=== PATIENT | female | born 1990 | race African-American/Black ===

== ENCOUNTER 2016-05-31 22:00 | Emergency (ER) | payer OTHER ==
[~2016-05-31] VITALS: Ht 175.3 cm; Wt 135.6 kg
[~2016-05-31 22:00] MED LIST: ONDA8ODT2 PO
[2016-05-31 22:21] VITALS: BP 148/101
--- NOTE | 2016-05-31 22:51 | NUR ---
TO ER OF4
--- NOTE | 2016-05-31 22:53 | NUR ---
Patient being evaluated by physician.
[2016-05-31] MEDS ORDERED: NACL 0.9% 1,000 ML IV SCH (22:58)
[2016-05-31] MEDS ORDERED: DICYCLOMINE 20 MG/2 ML VIAL IM ONE (23:00)
[2016-05-31] MEDS ORDERED: METOCLOPRAMIDE 10 MG/2 ML INJ VIAL IVP ONE (23:00)
--- NOTE | 2016-05-31 23:15 | NUR ---
MOVED TO ER BED 4
[2016-05-31 23:25] LABS: HEMATOCRIT 38.8 % (36-48); HEMOGLOBIN 12.8 g/dL (12.0-16.0); MEAN CORPUSCULAR HEMOGLOBIN 31 pg (27-31); MEAN CORPUSCULAR HGB CONC 33 g/dL (33-37); MEAN CORPUSCULAR VOLUME 95 fL (80-94); PLATELET COUNT (AUTO) 265 K/uL (140-450); RED BLOOD CELL COUNT(AUTO) 4.09 MIL/uL (4.20-5.40); RED CELL DISTRIBUTION WIDTH 12.2 % (11.6-13.7); WHITE BLOOD COUNT (AUTO) 6.1 K/uL (4.8-10.8)
[2016-05-31 23:32] LABS: BAND % (MANUAL) 0 % (0-8); LYMPHOCYTES % (MANUAL) 41 % (20-46); NEUTROPHILS % (MANUAL) 57 (43-65)
[2016-05-31 23:33] LABS: MONOCYTES % (MANUAL) 2 % (5-12)
[2016-05-31 23:42] LABS: APPEARANCE,URINE CLOUDY (CLEAR); BILIRUBIN,URINE 2+ (NEGATIVE); BLOOD, URINE 3+ (NEGATIVE); COLOR,URINE YELLOW (YELLOW); LEUKOCYTE ESTERASE ,URINE TRACE (NEGATIVE); NITRITE, URINE NEGATIVE (NEGATIVE); PH,URINE 6.5 (5.0-9.0); PROTEIN,URINE 1+ (NEGATIVE); UGLUCOSE NEGATIVE (NEGATIVE); UROBILINOGEN,URINE 0.2 EU/dL (0.2 - 1)
--- NOTE | 2016-05-31 23:43 | NUR ---
PATIENT PRESENTS TO ED WITH LLQ ABD PAIN SINCE TUESDAY . PT STATES SHE HAS ALSO BEEN VOMITING . DENIES DIARRHEA; SKIN IS PINK/WARM/DRY; AAOX4 WITH EVEN AND STEADY GAIT; LUNGS CLEAR BL; HR EVEN AND REGULAR; PT DENIES ANY FEVER, CP, SOB, OR COUGH AT THIS TIME; PATIENT STATES PAIN OF 10/10 AT THIS TIME; VSS; PATIENT POSITIONED FOR COMFORT; HOB ELEVATED; BEDRAILS UP X2; BED DOWN. ER MD MADE AWARE OF PT STATUS. SIGNIFICANT OTHER AT BEDSIDE AT THIS TIME
[2016-05-31 23:48] LABS: ALBUMIN 3.7 g/dL (3.4-5.0); ANION GAP 13.2 (8-16); CALCIUM 8.5 mg/dL (8.5-10.1); CARBON DIOXIDE 27.9 mmol/L (21-32); POTASSIUM 3.1 mmol/L (3.5-5.1); TOTAL BILIRUBIN 1.1 mg/dL (0.0-1.0); TOTAL PROTEIN, SERUM 8.5 g/dL (6.4-8.2)
[2016-06-01 00:01] LABS: BACTERIA,URINE 4+ /HPF (None Seen); ICTOTEST NEGATIVE (NEGATIVE); MUCUS,URINE 4+ /LPF (None Seen); RBC,URINE TOO NUMEROUS TO COUN /HPF (0-5)
[2016-06-01 00:27] VITALS: BP 153/99
--- NOTE | 2016-06-01 00:28 | NUR ---
Patient discharged with v/s stable. Written and verbal after care instructions given and explained. Patient alert, oriented and verbalized understanding of instructions. Ambulatory with steady gait. All questions addressed prior to discharge. ID band removed. Patient advised to follow up with PMD. Rx of BENTYL AND REGLAN given. Patient educated on indication of medication including possible reaction and side effects. Opportunity to ask questions provided and answered.
== END 2016-06-01 00:27 | disposition home or self-care (01) ==
LOC: MED 22:00
DX: R10.13 Epigastric pain (principal); R11.2 Nausea with vomiting, unspecified; R19.7 Diarrhea, unspecified; I10 Essential (primary) hypertension; F17.200 Nicotine dependence, unspecified, uncomplicated; Z71.6 Tobacco abuse counseling; Z98.890 Other specified postprocedural states
CPT/HCPCS: 36415; 80053; 81001; 81025; 83690; 84703; 85025; 87086; 96361; 96372; 96374; 99284; J0500; J2765; J7030

== ENCOUNTER 2017-11-04 09:44 | Emergency (ER) | payer MEDICAID, OTHER ==
[~2017-11-04] VITALS: Ht 175.3 cm; Wt 151.0 kg
[2017-11-04 09:48] VITALS: BP 149/100
--- NOTE | 2017-11-04 10:15 | NUR ---
27f bib self with c/o 8/10 right shouler pain x 3 days. Patient denies any recent injury or fall. Patient also reports of non radiating "tighting" midsternal cp x yesterday, but has been constant this morning at 0740 after "walking". Patient reports of SOB as well. Patient is aox4 to person, place, situation, and time. RR are even and unlabored. Clear speech with full setences. Skin is warm/dry/color appriopriate for age. Patient denies any recent heavy lifting or injury to chest area. Patinet denies any recent fevers. Patient changed into gown and to cardiac, bp, pulse, and pulse ox monitoring. NSR on cardiac monitoring. VSS. NAD. Awaiting er md nevarez. Patient positioned to comfort.All needs met at this time. Will continue to monitor.
--- NOTE | 2017-11-04 10:15 | NUR ---
notified er md del castillo of patient's complaints and status. no new orders. will continue to monitor.
--- NOTE | 2017-11-04 11:15 | NUR ---
er md del castillo by bedside examining patient
[2017-11-04] MEDS ORDERED: IPRATROPIUM 0.02% 0.5 MG/2.5 ML NEBU INH ONE (11:25)
[2017-11-04] MEDS ORDERED: methylPREDNISolone SS 125 MG/2 ML VIAL IVP ONE (11:25)
[2017-11-04] MEDS ORDERED: ALBUTEROL 0.083% 2.5 MG/3 ML NEBU INH ONE (11:25)
[2017-11-04] MEDS ORDERED: KETOROLAC 30 MG/ML VIAL IVP ONE (11:25)
[2017-11-04 11:36] LABS: BARBITURATE, URINE NEGATIVE ng/ml (NEG <=200); BENZODIAZEPINE, URINE NEGATIVE ng/mL (NEG <=200); CANNABINOID, URINE POSITIVE ng/mL (NEG <=50); COCAINE, URINE NEGATIVE ng/mL (NEG <=300); OPIATE, URINE NEGATIVE ng/mL (NEG <=2000); PHENCYCLIDINE SCREEN,URINE NEGATIVE ng/mL (NEG <=25)
[2017-11-04 11:52] LABS: APPEARANCE,URINE CLEAR (CLEAR); BILIRUBIN,URINE NEGATIVE (NEGATIVE); BLOOD, URINE 1+ (NEGATIVE); COLOR,URINE YELLOW (YELLOW); LEUKOCYTE ESTERASE ,URINE NEGATIVE (NEGATIVE); NITRITE, URINE NEGATIVE (NEGATIVE); PH,URINE 6.5 (5.0-9.0); UGLUCOSE NEGATIVE (NEGATIVE)
[2017-11-04 12:03] LABS: BASOPHILS % (AUTO) 0.4 % (0.0-2.0); EOSINOPHILS # (AUTO) 0.1 K/uL (0-0.4); EOSINOPHILS % (AUTO) 0.9 % (0.0-4.0); HEMATOCRIT 40.1 % (36-48); HEMOGLOBIN 13.4 g/dL (12.0-16.0); LYMPHOCYTES # (AUTO) 1.9 K/uL (2.5-16.5); LYMPHOCYTES % (AUTO) 26.5 % (20.5-51.1); MEAN CORPUSCULAR HEMOGLOBIN 31 pg (27-31); MEAN CORPUSCULAR HGB CONC 33 g/dL (33-37); MEAN CORPUSCULAR VOLUME 94.3 fL (80-94); MONOCYTES # (AUTO) 0.5 K/uL (0.8-1.0); MONOCYTES % (AUTO) 7.4 % (1.7-9.3); NEUTROPHILS # (AUTO) 4.6 K/uL (1.8-7.7); NEUTROPHILS % (AUTO) 64.8 % (42.2-75.2); PLATELET COUNT (AUTO) 292 K/uL (140-450); RED BLOOD CELL COUNT(AUTO) 4.25 MIL/uL (4.20-5.40); RED CELL DISTRIBUTION WIDTH 13.3 % (11.6-13.7); WHITE BLOOD COUNT (AUTO) 7.1 K/uL (4.8-10.8)
--- NOTE | 2017-11-04 12:14 | NUR ---
MED NEB TX STARTED GIVEN WITH 5MG ALBUTERUL AND UNIT DOSE OF ATROVENT VIA MP HR 73 RR 16 SPO2 100% ON RA BS DIMINISHED BL LOWER LOBE; RT BILL AT BEDSIDE
[2017-11-04 12:30] LABS: PROTHROMBIN TIME 10.6 secs (10.8-13.4)
[2017-11-04 12:34] LABS: ANION GAP 13.4 (8-16); CARBON DIOXIDE 27.4 mmol/L (21-32); CREATININE 0.7 mg/dL (0.6-1.3); POTASSIUM 3.8 mmol/L (3.5-5.1); TOTAL BILIRUBIN 0.5 mg/dL (0.0-1.0)
[2017-11-04 12:50] LABS: RBC,URINE 3-10 (FEW) /HPF (0-5); WBC,URINE 0-5 (RARE) /HPF (0-5)
[2017-11-04 14:04] VITALS: BP 133/99
--- NOTE | 2017-11-04 14:05 | NUR ---
Patient discharged with v/s stable. Written and verbal after care instructions given and explained. Patient alert, oriented and verbalized understanding of instructions. Ambulatory with steady gait. All questions addressed prior to discharge. ID band removed. Patient advised to follow up with PMD. Rx of NORCO, ALBUTEROL, IBUPROFEN given. Patient educated on indication of medication including possible reaction and side effects. Opportunity to ask questions provided and answered.
== END 2017-11-04 14:05 | disposition home or self-care (01) ==
LOC: MED 09:44
DX: J20.9 Acute bronchitis, unspecified (principal); I10 Essential (primary) hypertension; F17.200 Nicotine dependence, unspecified, uncomplicated; Z79.899 Other long term (current) drug therapy
CPT/HCPCS: 36415; 71045; 80053; 80305; 81001; 84484; 85025; 85379; 85610; 85730; 93005; 94640; 96374; 96375; 99285; J1885; J2930; J7613; J7644

== ENCOUNTER 2021-02-23 13:57 | Emergency (ER) | payer SELFPAY ==
[~2021-02-23] VITALS: Ht 175.3 cm; Wt 160.6 kg
[~2021-02-23 13:57] MED LIST changes: +ONDA-190 PO; -ONDA8ODT2 PO
[2021-02-23 14:20] VITALS: BP 182/125
--- NOTE | 2021-02-23 14:27 | NUR ---
pt triaged at this time. michael and fred swabbed and given to phleb
[2021-02-23] MEDS ORDERED: NAPR-54 PO (16:55)
[2021-02-23] MEDS ORDERED: AZIT250T4 PO (16:55)
[2021-02-23] MEDS ORDERED: PROM118S5 PO (16:55)
[2021-02-23] MEDS ORDERED: PRED20TA5 PO (16:55)
[2021-02-23 17:05] VITALS: BP 182/125
--- NOTE | 2021-02-23 17:05 | NUR ---
Patient discharged with v/s stable. Written and verbal after care instructions given and explained. Patient alert, oriented and verbalized understanding of instructions. Ambulatory with steady gait. All questions addressed prior to discharge. ID band removed. Patient advised to follow up with PMD. Rx of azithromycin, naproxen, prednisone, promethazine/dextromethorphan (sent) given. Patient educated on indication of medication including possible reaction and side effects. Opportunity to ask questions provided and answered.
== END 2021-02-23 17:05 | disposition home or self-care (01) ==
LOC: MED 13:57
DX: U07.1 COVID-19 (principal); I10 Essential (primary) hypertension
CPT/HCPCS: 71045; 87426; 99284; U0003